=== PATIENT | male | born 1980 | race Caucasian/White ===

== ENCOUNTER 2025-04-25 11:52 | Emergency (ER) | payer BC, SELFPAY ==
[2025-04-25] VITALS (7 sets, daily range): BP systolic 108–134; BP diastolic 67–85
--- NOTE | 2025-04-25 13:51 | ED.GENMED ---
History of Present Illness
General
Chief Complaint: Abdominal Pain
Source: patient
Exam Limitations: none
Time Seen by Provider: 04/25/25 13:11
Nursing documentation reviewed up to this point in time: agreed with
History of Present Illness
History of Present Illness:
Patient is a 45-year-old male who presents to the ER complaining of 2 weeks of constipation. 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 He did see his family doctor a week ago and had an x-ray and was given laxative
pills. He had a normal bowel movement the following day but has been constipated since. He is going very small amounts. He complains of a lot of lower left-sided abdominal pain. He has not eaten in the past day and a half because eating seems to
make it worse. He is not nauseous. No fevers.
No prior history of constipation. He has not had a colonoscopy yet
Phy Exam
General Physical Exam
General Presentation: no apparent distress
General age: appears stated age
General Skin: warm and dry
General Habitus: normal
General Mental: alert
General Hydration: appears well hydrated
Gastrointestinal Exam
Gastrointestinal Exam: normal bowel sounds, soft and other (+ lower abd /left sided abd tenderness ; REctal exam: no stool in vault )
Neurological Exam
Neurological Exam: alert and oriented x3
Musculoskeletal Exam
Musculoskeletal Exam: full ROM
Skin Exam
Skin Exam: normal color and warm/dry
Psychiatric Exam
Psychiatric Exam: normal mood/affect
Course
Orders/Labs/Results
Orders:
Orders
04/25/25 13:50
IV Insert/Care/Rem.- Treatment PRN
0.9% Sodium Chloride 1000 ml [Nss] 1,000 ml IV BOLUS
Ketorolac [Toradol] 15 mg IV NOW STA
04/25/25 14:02
Complete Blood Count/With Diff Urgent
Comprehensive Metabolic Panel Urgent
Abnormal Lab Results
04/25/25
14:02
WBC 11.9 H 10^3/uL
(4.8-10.8)
Abs Immat Gran (auto) 0.1 H 10^3/uL
(0-0.05)
Absolute Neuts (auto) 7.8 H 10^3/uL
(1.4-6.5)
Absolute Monos (auto) 0.8 H 10^3/uL
(0.1-0.6)
Immature Gran % 0.6 H %
(0-0.5)
04/25/25 14:02
04/25/25 14:02
Vital Signs
Initial and Last Documented VS:
Initial Vital Signs
Temp Pulse Resp BP Pulse Ox
99 F 88 16 134/73 97
04/25/25 11:55 04/25/25 11:55 04/25/25 11:55 04/25/25 11:55 04/25/25 11:55
Last Documented Vital Signs
Temp Pulse Resp BP Pulse Ox
99 F 76 17 117/84 96
04/25/25 11:55 04/25/25 15:43 04/25/25 15:43 04/25/25 16:00 04/25/25 16:30
MDM/Problems Addressed
Differential Diagnosis Includes:
Not limited constipation bowel obs, diverticulitis so he has flu positive no
MDM/Problems Addressed:
Patient is a 45-year-old male who presents complaining of constipation Intermittently for the past 2 weeks. He has been seen by his family doctor and had an outpatient x-ray and using a laxative. He did have a small bowel movement but continues
to complain of some lower and left-sided abdominal pain. On exam he is mildly tender however no acute distress denies any fevers. White count very minimally elevated. CAT scan ordered to further evaluate symptoms and to rule out diverticulitis,
obstruction constipation. Patient was medicated with Toradol fluids.
Patient states he needs to leave. 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 I did discuss with patient that workup was not complete however he reports he will follow-up with his family doctor tomorrow as he is heading
home. , I did review with patient importance of returning for any worsening of symptoms. He remains nontoxic.
*Pulse Oximetry
SaO2: 97
Oxygen Mode of Delivery: Room air
Patient hypoxic: no
*Critical Care Note
Total Time (30-74mins, 75-104mins- exclusive of procedures): Not Applicable
ED Attending Note
-
Portions of this chart may have been created with voice recognition software.� Occasional wrong word or��sound alike� substitutions may have occurred due to the inherent limitations of voice recognition software.
Discharge Plan
Departure
Patient Disposition: Home (Routine Discharge)
Date of Disposition: 04/25/25
Time of Disposition: 16:52
Patient with high blood pressure during this ER visit?: No
Condition: Fair
Covid-19: Not Applicable
Discharge Problem:
Constipation, Abdominal pain
Instructions: Constipation, Adult (DC), Abdominal Pain
Referrals:
NONE,* [Family Provider, Internal Medicine]
Activity Restrictions/Additional Instructions:
As discussed was recommended of a CAT scan to rule out bowel obstruction versus diverticulitis. Please follow-up closely with your family doctor for reevaluation of symptoms. You may try MiraLAX for constipation if you have already tried. Return
if any worsening of symptoms. Please follow-up with family doctor in the next 2 days
Interventions
Interventions:
*Risk Screen - Suicide Last Done: 04/25/25 11:58
*General Assessment Last Done: 04/25/25 13:10
*Neglect/Abuse Screening Last Done: 04/25/25 11:58
*ED- Fall Risk Assessment Last Done: 04/25/25 13:10
*ED COVID-19 Vaccine History Last Done: 04/25/25 13:10
*ED Influenza Vaccine History Last Done: 04/25/25 13:10
*Nursing Disposition Last Done: 04/25/25 17:02
OC-Mbiuva-Rtbjspmxdu Assessment Last Done: 04/25/25 13:10
Discharge Date and Time
Discharge Date/Time: 04/25/25 17:02
Print Language: DUTCH
[2025-04-25] MEDS: TORADOL 15 MG IV (14:04)
[2025-04-25] MEDS: NSS 1000 IV (14:04)
[2025-04-25 14:14] LABS: Hematocrit 48.6 % (39.0-52.0); Hemoglobin 16.7 g/dL (13.0-18.0); Mean Corp Hgb Conc. 34.4 g/dL (33.0-37.0); Mean Corpuscular Volume 87.4 fL (80.0-94.0); Nucleated Red Blood Cells % 0 % (-); Platelet Count 293 10^3/uL (130-400); Red Cell Dist. Width 13.8 % (11.5-14.5)
[2025-04-25 14:24] LABS: ALT (SGPT) 21 U/L (0-50); AST (SGOT) 19 U/L (17-59); Albumin 4.3 g/dl (3.5-5.0); Alkaline Phosphatase 79 U/L (38-126); Blood Urea Nitrogen 11 mg/dl (9-20); Calcium 9.1 mg/dl (8.4-10.2); Carbon Dioxide 26 mmol/L (22-30); Chloride 103 mmol/L (98-107); Glucose 82 mg/dl (70-99); Potassium 4.0 mmol/L (3.5-5.1); Sodium 136 mmol/L (135-145); Total Protein 7.5 g/dl (6.3-8.2); eGFR > 60.00
== END 2025-04-25 17:02 | disposition home or self-care (01) ==
LOC: EMR 11:52
PROVIDERS: Nurse Practitioner; EMERGENCY PHYSICIAN Emergency Medicine
DX: K59.00 Constipation, unspecified (principal); R10.32 Left lower quadrant pain
CPT/HCPCS: 96374; 96361; 99284; 80053; 85025